=== PATIENT | male | born 1950 | race Caucasian/White ===

== ENCOUNTER 2017-10-30 12:50 | Inpatient (IN) | payer MEDICARE, BC ==
[2017-11-18] MEDS ORDERED: METOCLOPRAMIDE 10 MG TABLET PO ONE (06:00)
[2017-11-18] MEDS ORDERED: MECLIZINE 25 MG TABLET PO ONE (06:00)
[2017-11-18] MEDS ORDERED: FAMOTIDINE 20MG TABLET PO ONE (06:00)
[2017-11-18] MEDS ORDERED: CEFAZOLIN 2 Gram 2 GM/50 ML BAG IVPB ONE (06:00)
[2017-11-18] MEDS ORDERED: CELECOXIB 100 MG CAPSULE PO ONE (06:00)
[2017-11-18] MEDS ORDERED: VANCOMYCIN HCL 1,000 MG in DEXTROSE 5 % IN WATER 250 ML IVPB ONE ×2 (06:00)
[2017-11-18 10:58] LABS: ABO GROUP AB
[2017-11-18 10:59] LABS: ANTIBODY SCREEN NEGATIVE (NEGATIVE); RH TYPE POSITIVE
[2017-11-18] MEDS ORDERED: 0.9 % SODIUM CHLORIDE 10 ML VIAL IVP ONE (14:00)
[2017-11-18] MEDS ORDERED: TRANEXAMIC ACID 1,000 MG/10 ML ML IV ONE (14:00)
[2017-11-18] MEDS ORDERED: ROPIVACAINE HCL (NAROPIN) /PF 5MG/ML 20ML VIAL IV ONE (14:51)
[2017-11-18] MEDS ORDERED: DEXAMETHASONE 4 MG/ML 1ML VIAL IVP ONE (14:51)
[2017-11-18] MEDS ORDERED: BISACODYL 10 MG SUPP RC PRN (15:02)
[2017-11-18] MEDS ORDERED: ZOLPIDEM TARTRATE 5 MG TABLET PO PRN (15:02)
[2017-11-18] MEDS ORDERED: NALOXONE 0.4 MG/1 ML VIAL IVP PRN (15:02)
[2017-11-18] MEDS ORDERED: AL HYDROX/MAG HYDROX 30ML UD PO PRN (15:02)
[2017-11-18] MEDS ORDERED: ACETAMINOPHEN 325 MG TAB PO PRN (15:02)
[2017-11-18] MEDS ORDERED: DIPHENHYDRAMINE HCL 25 MG CAPSULE PO PRN (15:02)
[2017-11-18] MEDS ORDERED: ONDANSETRON HCL IV 4 MG/2 ML VIAL IVP PRN (15:02)
[2017-11-18] MEDS ORDERED: KETOROLAC 30 MG/ML VIAL IVP PRN ×2 (15:02)
[2017-11-18] MEDS ORDERED: PATIENT OWN MED: LORATADINE 10 MG PO PRN (16:16)
[2017-11-18] MEDS ORDERED: PATIENT OWN MED: FLUTICASONE NASAL SPRAY INH PRN (16:17)
[2017-11-18] MEDS: POTASSIUM CHLORIDE/D5-0.9%NACL 20 MEQ/1,000 ML BAG IV SCH (16:56)
[2017-11-18] MEDS: OXYCODONE HCL 5 MG TABLET PO PRN (17:20)
--- NOTE | 2017-11-18 17:35 | Operative Note ---
DATE: 11/18/2017 PREOPERATIVE DIAGNOSIS: END-STAGE ARTHROSIS OF THE RIGHT KNEE. POSTOPERATIVE DIAGNOSIS: END-STAGE ARTHROSIS OF THE RIGHT KNEE. PROCEDURE: CEMENTED RIGHT TOTAL KNEE ARTHROPLASTY USING BECK & NEPHEW JORDAN II COMPONENTS, WITH A SIZE 8 OXINIUM FEMUR, A SIZE 7 STEMMED TIBIAL BASEPLATE, A 9 MM LIPPED HIGHLY CROSSLINKED TIBIAL INSERT, AND A 35 MM ALL-PLASTIC PATELLA. STAFF SURGEON: HOME ODELL M.D. ANESTHESIA: SPINAL. PREPARATION: CHLORAPREP. INDIVIDUAL CONSIDERATIONS: NONE. PROCEDURE: The patient was taken to the Operating Room and placed supine on the operating table. He had a successful induction of a spinal anesthetic. His right lower extremity was prepped and then draped in the usual fashion. The limb was elevated and the tourniquet was inflated to 250 mmHg. The patient had a midline approach to the knee. Sharp dissection carried down through the skin and subcutaneous tissue. Small veins were coagulated with the Bovie. A medial arthrotomy was performed. The patella was everted and the knee was flexed. The patient had [id number] contact of the medial and patellofemoral compartments with bone loss. The fat pad was resected, the ACL was sacrificed, provisional anterior meniscectomies were performed, and the capsule was released from the medial proximal tibia. The initial femoral dispatcher ship pilot hole was then made free hand. The intramedullary femoral cutting jig was placed. It was cut in 7.0 degrees of valgus and adjusted for rotation and secured with pins for a 10 mm resection. The initial transverse cut was then made. Skin guide was placed in the anterior and posterior dispatcher ship pilot holes and it was found that a size 8 would be appropriate. The anterior and posterior cuts were then made, osteophytes were removed, and a size 8 trial was found to fit well. The tibia was brought forward and the remainder of the meniscal remnants were removed with a Bovie. The extraarticular tibial cutting jig was then placed. It was cut in neutral with a 3-degree AP slope. Care was taken to adjust for rotation and flexion using the extraarticular alignment guide and bony landmarks. It was set for a 9 mm resection, keyed off the high lateral side and secured with pins. When cutting the tibia, care was taken to preserve the PCL insertion on the tibia. After removing large medial osteophytes, I was able to fit a size 7. It was adjusted for rotation and secured with pins. With a 9 mm trial and the femoral trial, there was excellent motion and stability. Ligamentous balance, rotation, and alignment were thought to be normal. The femoral dispatcher ship pilot holes were impacted and the triflange tibial stamp was impacted and these trial components were removed. The patient had a thick patella and roughly 9 mm of bone was removed free hand. I was easily able to fit a 35 patella and the three dispatcher ship pilot holes were drilled. The knee was then thoroughly irrigated out with pulsatile Betadine and saline to remove any visual or palpable debris. The tourniquet was let down briefly to get bleeders posteriorly and then placed back up again and then irrigated out again. Bony surfaces were dried. A size 7 stemmed tibial baseplate was cemented into place followed by impaction of the 9 mm lipped tibial insert followed by cementing in a size 8 Oxinium femur followed by cementing in the 35 mm patella. Implant surfaces were compressed, excess cement was removed and after the cement had set, there was excellent motion and stability. Ligamentous balance, rotation, alignment, and patellofemoral tracking were normal. No lateral release was required. After irrigation, the tourniquet was again let down and hemostasis was obtained with a Bovie. The capsule and periosteum were then infiltrated with 30 mL of 0.5% Marcaine with Epinephrine. The capsule was then closed with a running #2 Quill. The subcut was closed in layers with running #0 Quill. The skin was closed with gwendolyn. The patient did receive 1 gram of Tranexamic Acid IV preoperatively. I mixed 1 gram of Tranexamic acid with 30 mL of saline and injected it into the knee through a sterile #18 gauge needle and a sterile [place] compressive RADHA-type dressing was applied. The patient tolerated the procedures well. Needle and sponge counts were correct, estimated blood loss was minimal, and he was taken back to Recovery in good condition. There were no complications. JOB NUMBER: [id number] [facility]
--- NOTE | 2017-11-18 17:54 | Rehab Evaluation ---
Patient Information - Patient Information Diagnosis: R knee DJD Ordered Treatment: PT Evaluate and Treat Status: Initial Evaluation Surgery: Yes (R TKA) Date of Surgery: 11/18/17 Past Medical/Surgical Hx: PAST MEDICAL/SURGICAL HISTORY Past Surgical History tonsils fadumo tummy tuck ORIF right wrist sinus sx mastoid sx 1959's and revision c scopes dental sx PMH - Respiratory Hx Respiratory Disorders Yes Comment: chronic sinus issues, frequent flonase PMH - Cardiovascular Hx Cardiovascular Disorders Yes Hx Irregular Heartbeat Yes: in past has had neg cardio workup Hx Palpitations Yes: in past Exercise Tolerance Fair PMH - Neuro Hx Neurological Disorders Yes Hx Dizziness Yes: at times PMH - GI Hx Gastrointestinal Disorders Yes Hx Gastroesophageal Reflux Yes: at night uses soda and water occassionally Hx Hepatitis/Jaundice Yes: Hep B 1983 Comment: chronic constipation PMH - Hx Genitourinary Disorders Yes Hx Bladder Problem Yes: urgency PMH - Endocrine Hx Endocrine Disorders No Hx Diabetes No Hx Thyroid Disease No PMH - Musculoskeletal Hx Musculoskeletal Disorders Yes Hx Arthritis Yes: OA PMH - Psych Hx Psychiatric Problems Yes Hx Anxiety Yes Hx Depression Yes Major Depressive Episode Yes Comment: nervous breakdown 16 yrs ago PMH - Hematology/Oncology Hx Hematology/Oncology Yes Disorders Hx Blood Disorders Yes: hx polycythemia Hx Cancer Yes: skin bcc shoulders Premorbid Status: Detail (The patient was previously independent with all mobility.) Social History: Detail (The patient lives alone in a one story house with 3 steps at the front enterance and 3 steps with a platform inbetween each step at the garage enterance. The patient's bathroom he plans on using has a tub/ shower combination with a shower bence and a standard toilet with a commode seat with handles. The patient has a walker with 2 wheels.) Precautions: [place], Fall, Other (WBAT on the R LE) - Time With Patient Total Time Spent With Patient (Min): 30 Treatment Procedures: Detail (Initial Evaluation, gait training) Subjective Information - Subjective Information Per Patient (The patient has complaints of R knee pain level 5 after ambulating) Objective Data - Mental Status Patient Orientation: Oriented x3 - Visual Perception Appears within normal limits for therapeutic activities - ROM Not within normal limits (R knee AROM is limited as to be expected following surgery. All other AROM is WNL.) - Strength/Tone Not within normal limits (The patient's R LE strength was not formally tested secondary s/p surgery , however the patient's strength is functional ie: he is able to complete a SLR. The patient's L LE is generally 4+ to 5/5.) - Bed Mobility Independent (The patient was independent with supine to and from sit transfer and scooting up in bed.) - Transfers Independent (The patient was independent with sit to and from stand transfer.) - Balance Balance Sitting: Good Balance Standing: Good - Gait Detail (The patient ambulated with a 2 wheeled walker WBAT R LE a distance of 22 feet x 1 with supervision for safety only.) Therapy Assessment - Therapy Assessment Detail (The patient was independent with bed mobility and transfers. Feel the patient will progress well with mobility.) Problem List - Problem List Physical Therapy Problem List: Detail (1) Decreased R knee AROM and strength as to be expected following surgery 2) Non ambulatory on stairs) Goals - Goals Physical Therapy Goals: 1) The patient will be independent with HEP of TKA exercises. 2) The patient will ambulate independently with assistive device WBAT on the R LE household distances. 3) The patient will ambulate on stairs with supervision for safety. Prognosis - Prognosis Good Plan - Plan Physical Therapy Plan: PT 1-2 times a day for gait training on levels and stairs and instruction in home exercise program until all PT goals have been met.
[2017-11-18] MEDS: HYDROMORPHONE HCL 2 MG/ML VIAL IM PRN (19:40)
[2017-11-18] MEDS: CEFAZOLIN 2 Gram 2 GM/50 ML BAG IVPB SCH (19:41)
[2017-11-18] MEDS ORDERED: ONDANSETRON HCL IV 4 MG/2 ML VIAL IVP ONE (20:30)
[2017-11-18] MEDS: DOCUSATE SODIUM 100 MG CAPSULE PO SCH (22:04)
[2017-11-19] MEDS: POTASSIUM CHLORIDE/D5-0.9%NACL 20 MEQ/1,000 ML BAG IV SCH ×3 (01:17→18:01)
[2017-11-19] MEDS: HYDROMORPHONE HCL 2 MG/ML VIAL IM PRN ×3 (01:49→20:19)
[2017-11-19] MEDS: CEFAZOLIN 2 Gram 2 GM/50 ML BAG IVPB SCH ×2 (03:55→13:07)
[2017-11-19 06:57] LABS: HEMATOCRIT 41.3 % (42.0-52.0); HEMOGLOBIN 13.7 gm/dl (14.0-18.0)
[2017-11-19 07:05] LABS: BLOOD UREA NITROGEN 18 mg/dL (8-23); CREATININE 0.8 mg/dL (0.7-1.2); EST GLOMERULAR FILTRATION RATE > 60 mL/min; GLUCOSE,RANDOM 125 mg/dL (74-109)
[2017-11-19] MEDS: FERROUS SULFATE 325 MG TAB PO SCH (09:35)
[2017-11-19] MEDS: DOCUSATE SODIUM 100 MG CAPSULE PO SCH ×2 (09:35→21:48)
[2017-11-19] MEDS: RIVAROXABAN 10 MG TABLET PO SCH (09:35)
[2017-11-19] MEDS: PREDNISOLONE ACETATE LEFT EAR SCH (09:36)
--- NOTE | 2017-11-19 10:49 | Physical Therapy Tx Note ---
Physical Therapy Tx Note - Treatment Note Tolerated: Good Total Time Spent With Patient: 30 Physical Therapy Tx Note: Detail (The patient was up in recliner chair when PT arrived. The patient ambulated independently with 2 wheeled walker a distance of 60 feet x 1, WBAT on the R LE. The patient ambulated on stairs with supervision for safety only with use of small base quad cane and one railing . The patient was unable to lift R LE into bed with sit to supine due to knee pain , but was able to lift leg with use of strap. The patient was independent with supine to sit. The patient completed TKA exercises including: ankle pumps, quad sets, gluteal sets, hamstring sets, heel slides and SLR . The patient had difficulty isolating right quad. The patient returned to recliner, ice pack was in place and call light was within reach. The patient has met all inpatient goals. Patient requested PT check with him this pm for possibly another practice session on stairs.) Physical Therapy Problem List: Detail (1) Decreased R knee AROM and strength as to be expected following surgery 2) Non ambulatory on stairs) Physical Therapy Goals: 1) The patient will be independent with HEP of TKA exercises. 2) The patient will ambulate independently with assistive device WBAT on the R LE household distances. 3) The patient will ambulate on stairs with supervision for safety. Physical Therapy Plan: PT 1-2 times a day for gait training on levels and stairs and instruction in home exercise program until all PT goals have been met.
[2017-11-19] MEDS: TRAMADOL HCL 50 MG TABLET PO PRN (13:44)
[2017-11-19] MEDS ORDERED: TRANEXAMIC ACID 1,000 MG/10 ML ML IV ONE (13:49)
[2017-11-19] MEDS ORDERED: BUPIVACAINE 0.5% W/EPI MPF 30 ML VIAL IVP ONE (13:49)
[2017-11-19] MEDS ORDERED: PROPOFOL 10 MG/ML VIAL IV ONE (14:05)
[2017-11-19] MEDS ORDERED: MIDAZOLAM HCL 2MG/2ML VIAL IV ONE (14:05)
[2017-11-19] MEDS ORDERED: LIDOCAINE 1% MDV (10MG/ML) 20ML VIAL SQ ONE (14:05)
[2017-11-19] MEDS ORDERED: ONDANSETRON HCL IV 4 MG/2 ML VIAL IVP ONE (14:05)
--- NOTE | 2017-11-19 14:36 | Rehab Evaluation ---
Patient Information - Patient Information Diagnosis: R knee DJD Ordered Treatment: OT Evaluate and Treat Status: Initial Evaluation Surgery: Yes (R TKA) Date of Surgery: 11/18/17 Past Medical/Surgical Hx: PAST MEDICAL/SURGICAL HISTORY Past Surgical History tonsils fadumo tummy tuck ORIF right wrist sinus sx mastoid sx 1959's and revision c scopes dental sx PMH - Respiratory Hx Respiratory Disorders Yes Comment: chronic sinus issues, frequent flonase PMH - Cardiovascular Hx Cardiovascular Disorders Yes Hx Irregular Heartbeat Yes: in past has had neg cardio workup Hx Palpitations Yes: in past Exercise Tolerance Fair PMH - Neuro Hx Neurological Disorders Yes Hx Dizziness Yes: at times PMH - GI Hx Gastrointestinal Disorders Yes Hx Gastroesophageal Reflux Yes: at night uses soda and water occassionally Hx Hepatitis/Jaundice Yes: Hep B 1983 Comment: chronic constipation PMH - Hx Genitourinary Disorders Yes Hx Bladder Problem Yes: urgency PMH - Endocrine Hx Endocrine Disorders No Hx Diabetes No Hx Thyroid Disease No PMH - Musculoskeletal Hx Musculoskeletal Disorders Yes Hx Arthritis Yes: OA PMH - Psych Hx Psychiatric Problems Yes Hx Anxiety Yes Hx Depression Yes Major Depressive Episode Yes Comment: nervous breakdown 16 yrs ago PMH - Hematology/Oncology Hx Hematology/Oncology Yes Disorders Hx Blood Disorders Yes: hx polycythemia Hx Cancer Yes: skin bcc shoulders Premorbid Status: Detail (The patient was previously independent with all mobility and I/ADL's including self care, driving, and household mgmt.) Social History: Detail (The patient lives alone in a one story house (with sunken family room...one small step) with 3 steps at the front enterance and 3 steps with a platform in between each step at the garage enterance. The patient 's bathroom he plans on using has a tub/shower combination with a tub bench and hand held shower head; and a standard toilet with 3-in-1 commode over it. The patient has a walker with 2 wheels, cane, artist's model, and long handled shoe horn.) Precautions: [place], Fall, Other (WBAT on the R LE) - Time With Patient Total Time Spent With Patient (Min): 20 Treatment Procedures: Detail (OT Eval Low. Session was concluded with pt. seated in arm chair. PT entered to work with.) Subjective Information - Subjective Information Per Patient (R hand dominant. Pt. stated he plans to d/c to [facility] for 1-2 weeks before returning home.) Objective Data - Pain Pain Present: Yes (07/19 RLE) - Mental Status Patient Orientation: Oriented x3 - Visual Perception Appears within normal limits for therapeutic activities - ROM Within normal limits (BUE) - Strength/Tone Not within normal limits (RUE feels weaker than L. RUE shd flex, abd, & triceps 4-/5. RUE biceps 4/5. LUE shd flex, abd & triceps 4/5. LUE biceps 4+/5. Pt had IV in RUE which may cause incr. pain and weakness at time of eval. Pt. stated RUE is usually stronger than L. Bilateral functional new accounts banking representative strength (i.e. squeezing hands) felt equal and strong.) - Coordination Appears within normal limits for therapeutic activities - Transfers Independent (modified Ind. sit<>stand from arm chair to walker.) - Balance Balance Sitting: Good Balance Standing: Fair - Sensation Intact (BUE fingertips light touch intact. Pt. reported occasional numbness in hands and feet d/t peripheral neuropathy. Educ. was provided in adaptive strategies to build up walker or cane handles.) - ADL's/IADL's Detail (Pt. had dressed TB prior to evaluation, but stated he required min A to pull up pants (was Ind. UB, and to thread). Educ. provided in adaptive dressing techniques (including compression stockings) using artist's model and sock aid if needed. Pt. demo. ability to don & doff R sock Ind. while seated without use of AE. Stated light headed after bending over; educ. provided to use artist's model for assistance to avoid bending over/light headedness to reduce fall risk. Pt. has friends/neighbors that will be able to assist with laundry at home (located in basement) during recovery. Pt. voiced concern for ability to transport laundry up/down stairs but stated he "rigged a [place] system" to pull a bag of laundry up/down stairs. Pt. has paid a service to complete yardwork during his recovery. Pt. 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 OT services not recommended at this time. Pt. would benefit from in-home OT eval and tx for environmental assessment and BUE strengthening to maximize safety and Ind. with I/ADL's.) Patient Education - Patient Education Teaching Topic: Equipment Use Response: Return Demonstration, Verbalize Understanding Teaching Method: Discussion Teaching Recipient: Patient Barriers To Learning: None Problem List - Problem List Physical Therapy Problem List: Detail (1) Decreased R knee AROM and strength as to be expected following surgery 2) Non ambulatory on stairs) Goals - Goals Physical Therapy Goals: 1) The patient will be independent with HEP of TKA exercises. 2) The patient will ambulate independently with assistive device WBAT on the R LE household distances. 3) The patient will ambulate on stairs with supervision for safety. Prognosis - Prognosis Good Plan - Plan Physical Therapy Plan: PT 1-2 times a day for gait training on levels and stairs and instruction in home exercise program until all PT goals have been met. Occupational Therapy Plan: D/C from in-pt OT services.
[2017-11-19] MEDS: OXYCODONE HCL 5 MG TABLET PO PRN (15:03)
--- NOTE | 2017-11-19 15:21 | Physical Therapy Tx Note ---
Physical Therapy Tx Note - Treatment Note Tolerated: Good Total Time Spent With Patient: 15 Physical Therapy Tx Note: Detail (Patient requested to ambulate. Patient ambulated with wheeled walker 75 feet x 1 WBAT on the R LE independently. The patient returned to bed and was independent with supine to and from sit transfer. The patient was left with call light in reach.) Physical Therapy Problem List: Detail (1) Decreased R knee AROM and strength as to be expected following surgery 2) Non ambulatory on stairs) Physical Therapy Goals: 1) The patient will be independent with HEP of TKA exercises. 2) The patient will ambulate independently with assistive device WBAT on the R LE household distances. 3) The patient will ambulate on stairs with supervision for safety. Physical Therapy Plan: All inpatient goals have been met. The patient is discharged from inpatient PT. The patient will be receiving ongoint PT at another facility.
[2017-11-20] MEDS: POTASSIUM CHLORIDE/D5-0.9%NACL 20 MEQ/1,000 ML BAG IV SCH ×2 (00:15→17:58)
[2017-11-20] MEDS: HYDROMORPHONE HCL 2 MG/ML VIAL IM PRN ×2 (01:38→06:21)
[2017-11-20 06:33] LABS: HEMATOCRIT 44.9 % (42.0-52.0); HEMOGLOBIN 14.9 gm/dl (14.0-18.0)
[2017-11-20 07:00] LABS: BLOOD UREA NITROGEN 13 mg/dL (8-23); CREATININE 0.8 mg/dL (0.7-1.2); EST GLOMERULAR FILTRATION RATE > 60 mL/min; GLUCOSE,RANDOM 118 mg/dL (74-109)
--- NOTE | 2017-11-20 07:28 | RADIOLOGY REPORT ---
EXAM: PORTABLE CHEST HISTORY: DIFFICULTY IN BREATHING. TECHNIQUE: A portable AP upright view of the chest was performed. FINDINGS: The heart size is normal. No pulmonary vascular congestion. No infiltrate or pleural effusion. The osseous structures are normal. IMPRESSION: NO ACUTE DISEASE PROCESS. JOB NUMBER: [id number] [facility]
[2017-11-20] MEDS: DOCUSATE SODIUM 100 MG CAPSULE PO SCH ×2 (10:41→22:43)
[2017-11-20] MEDS: FERROUS SULFATE 325 MG TAB PO SCH (10:41)
[2017-11-20] MEDS: OXYCODONE HCL 5 MG TABLET PO PRN ×3 (10:41→18:51)
[2017-11-20] MEDS: MAGNESIUM HYDROXIDE 30 ML UDC PO PRN ×2 (10:41→18:17)
[2017-11-20] MEDS: RIVAROXABAN 10 MG TABLET PO SCH (11:10)
[2017-11-20] MEDS: TRAMADOL HCL 50 MG TABLET PO PRN ×3 (11:13→18:51)
[2017-11-20] MEDS: PREDNISOLONE ACETATE LEFT EAR SCH (11:15)
[2017-11-20] MEDS ORDERED: OXYCODONE HCL 5 MG TABLET PO ONE (12:25)
--- NOTE | 2017-11-20 19:53 | Discharge Summary ---
DATE OF ADMISSION: 11/18/2017 DATE OF DISCHARGE: 11/21/2017 DATE OF SURGERY: 11/18/2017 HISTORY: Mr. Awan is a delightful 72-year-old male who presents with end- stage arthrosis of his right knee. He was admitted after right total knee arthroplasty. Postoperatively he did well except for pain. DISCHARGE INSTRUCTIONS: The plan is to transfer him to rehab. His sutures should be removed at the rehab facility on 12/02/2017. If he is at home by then , the Visiting Nurse can do it. He has a RADHA dressing that should remain intact up until 7 days postoperatively, then it can be removed and the pump can be discarded. He can go ahead and shower with the dressing, because it is waterproof, but the vacuum pump just needs to be disconnected and a piece of tape placed over the end of it. He has been given a prescription for Oxy IR and Tramadol for pain. He should be maintained on Xarelto for DVT prophylaxis. He will be going home on the , so he will need a Xarelto dose on the and the 15 for only two more days and then he should take one Aspirin daily for 30 days. He should follow-up in my office in four weeks. FINAL DIAGNOSIS/PRIMARY DIAGNOSIS: END-STAGE ARTHROSIS OF THE RIGHT KNEE. OPERATIONS AND PROCEDURES: CEMENTED RIGHT TOTAL KNEE ARTHROPLASTY. DISCHARGE CONDITION: GOOD. JOB NUMBER: [id number] MTDD
[2017-11-21] MEDS: TRAMADOL HCL 50 MG TABLET PO PRN ×3 (00:18→10:04)
[2017-11-21] MEDS: OXYCODONE HCL 5 MG TABLET PO PRN ×3 (00:19→10:04)
[2017-11-21] MEDS: RIVAROXABAN 10 MG TABLET PO SCH (09:05)
[2017-11-21] MEDS: FERROUS SULFATE 325 MG TAB PO SCH (09:05)
[2017-11-21] MEDS: DOCUSATE SODIUM 100 MG CAPSULE PO SCH (09:05)
[2017-11-21] MEDS: PREDNISOLONE ACETATE LEFT EAR SCH (09:09)
== END 2017-11-21 10:11 | DRG 470 ==
LOC: MEDSURG 11-18 09:49
PROVIDERS: ADMIT Orthopaedic Surgery; ATTEND Orthopaedic Surgery
PROC: 0SRC069 Replacement of Right Knee Joint with Oxidized Zirconium on Polyethylene Synthetic Substitute, Cemented, Open Approach (ICD-10-PCS; principal; 2017-11-18 12:00)
DX: M17.11 Unilateral primary osteoarthritis, right knee (principal)
CPT/HCPCS: 71045; 80048; 85014; 85018; 86850; 86900; 86901; 97110; 97530; C1776; J1885; J2405; J3480